=== PATIENT | female | born 1965 | race Caucasian/White ===

== ENCOUNTER 2016-08-23 23:38 | Emergency (ER) | payer MEDICAID ==
[2016-08-23] MEDS ORDERED: HYDROMORPHONE HCL INJ/PF 2 MG/ML AMPULE IV ONE (23:55)
[2016-08-23] MEDS ORDERED: NORMAL SALINE 1000 ML 1,000 ML IV ONE (23:56)
--- NOTE | 2016-08-23 23:58 | ER Document Report ---
ED General - General Stated Complaint: ABDOMINAL PAIN Time Seen by Provider: 08/23/16 23:46 Notes: Patient is a 51-year-old female with a history of stage IV breast cancer that comes emergency department for chief complaint of abdominal pain and pain over her left breast. Patient states that she has a draining open wound over her left breast that she has changed to 3 times a week in [place] where her oncologist Dr. Porter is located. she is currently undergoing chemotherapy. She states that she had a normal bowel movement recently which was nonbloody but she has had abdominal swelling and increased pain to her abdomen. She denies fever. She states she wanted to go to [place] but EMS had to bring her here. Past Medical History - General Information source: Patient - Social History Smoking Status: Never Smoker Frequency of alcohol use: None Drug Abuse: None Lives with: Spouse/Significant other Family History: Reviewed & Not Pertinent Malignancy Medical History: Reports: Hx Breast Cancer, Hx Liver Cancer, Hx Lung Cancer - Immunizations Hx Diphtheria, Pertussis, Tetanus Vaccination: Yes Review of Systems - Review of Systems Constitutional: No symptoms reported EENT: No symptoms reported Cardiovascular: No symptoms reported Respiratory: No symptoms reported Gastrointestinal: See HPI Genitourinary: No symptoms reported Female Genitourinary: No symptoms reported Musculoskeletal: No symptoms reported Skin: No symptoms reported Hematologic/Lymphatic: No symptoms reported Neurological/Psychological: No symptoms reported Physical Exam - Vital signs Vitals: Temp Pulse Resp BP Pulse Ox 98.0 F 139 H 17 124/95 H 98 08/23/16 23:47 08/23/16 23:47 08/23/16 23:47 08/23/16 23:47 08/23/16 23:47 Interpretation: Normal - General General appearance: Other - Patient is extremely emaciated, room smells of purulent discharge, patient is generally ill-appearing - HEENT Head: Normocephalic, Atraumatic Eyes: Normal Conjunctiva: Normal Extraocular movements intact: Yes Eyelashes: Normal Pupils: PERRL Mouth/Lips: Normal Mucous membranes: Normal Pharynx: Normal Neck: Normal - Respiratory Respiratory status: No respiratory distress Chest status: Tender - There is tenderness in the general area around the left lower breast, there is a dressing, there is purulent drainage from an open wound Breath sounds: Normal. No: Decreased air movement, Wheezing Chest palpation: Normal - Cardiovascular Rhythm: Regular, Tachycardia Heart sounds: Normal auscultation, S1 appreciated, S2 appreciated - Abdominal Distension: Distended Tenderness: Tender - Generalized tenderness without any specific guarding Organomegaly: No organomegaly - Back Back: Normal, Nontender - Extremities General upper extremity: Normal inspection, Nontender, Normal color, Normal ROM , Normal temperature General lower extremity: Normal inspection, Nontender, Normal color, Normal ROM , Normal temperature, Normal weight bearing. No: Carrington's sign - Neurological Neuro grossly intact: Yes Cognition: Normal Orientation: AAOx4 [place] Coma Scale Eye Opening: Spontaneous [place] Coma Scale Verbal: Oriented [place] Coma Scale Motor: Obeys Commands [place] Coma Scale Total: 15 Speech: Normal Motor strength normal: LUE, RUE, LLE, RLE Sensory: Normal - Psychological Associated symptoms: Normal affect, Normal mood - Skin Skin Temperature: Warm Skin Moisture: Dry Skin Color: Normal Course - Re-evaluation Re-evalutation: Patient tachycardic, has a swollen abdomen with generalized tenderness but no specific areas of guarding. No fever. No hypotension. Patient is very frail and emaciated in appearance. Patient is not hypoxic or in respiratory distress. CBC is actually unremarkable, patient does not have a fever. No abnormalities with neutrophils despite chemotherapy. Chemistry shows hyponatremia, bicarbonate is low, anion gap is elevated, consistent with metabolic acidosis. Patient receiving IV fluids. Mild hypokalemia. Chest x-ray showing multiple lesions, KUB showing nearly complete opacification, difficult to establish if this is ascites or other abnormality. CT recommended. Discussed with Dr. Olivera, recommends CT at this time before contacting her oncologist due to chief complaint of abdominal pain with her current workup. Patient does have breast cancer with liver mets, denies hx of ascites or any abdominal pain during her cancer course. 08/24/16 CT with large ascites. I called patient's Oncologist, discussed details, he states that patient can be admitted for abdominal paracentesis. Patient is wanting to be at [facility], he states that for continuity of care this is reasonable and that I will need to speak with the hospitalist. Spoke with Dr. Dale, he states they are happy to accept the patient but because we have radiology that can perform Alex paracentesis and oncology at this facility he cannot guarantee coverage, asked me to make double sure with patient and family that they still want to be transferred. I spoke with patient and , they state they understand there may be a cost to transfer , state they still want to go to [facility]. Called and spoke with transfer center again, patient accepted for transfer. - Vital Signs Vital signs: Temp Pulse Resp BP Pulse Ox 98.0 F 139 H 16 121/96 H 99 08/23/16 23:47 08/23/16 23:47 08/24/16 06:01 08/24/16 06:00 08/24/16 06:01 - Laboratory Result Diagrams: 08/24/16 00:43 08/24/16 00:43 Laboratory results interpreted by me: 08/24/16 08/24/16 08/24/16 00:43 00:43 03:00 RDW 20.1 H Seg Neutrophils % 88.0 H Lymphocytes % 7.3 L Sodium 129.7 L Potassium 3.4 L Chloride 90 L Carbon Dioxide 14 L Anion Gap 26 H BUN 6 L Creatinine 0.38 L Glucose 70 L Direct Bilirubin 0.5 H AST 75 H Alkaline Phosphatase 294 H Albumin 2.9 L Urine Protein 100 H Urine Ketones 80 H Discharge - Discharge Clinical Impression: Metabolic acidosis, Liver metastasis Abdominal pain Qualifiers: Abdominal location: generalized Qualified Code(s): R10.84 - Generalized abdominal pain Ascites Qualifiers: Ascites type: malignant Qualified Code(s): R18.0 - Malignant ascites Condition: Stable Disposition: [facility]
[2016-08-24 01:02] LABS: ABSOLUTE LYMPHOCYTES (AUTO) 0.5 10^3/uL (0.5-4.7); ABSOLUTE MONOCYTES (AUTO) 0.3 10^3/uL (0.1-1.4); ABSOLUTE NEUT (AUTO) 5.8 10^3/uL (1.7-8.2); BASOPHILS % (AUTO) 0.2 % (0-2); HEMATOCRIT 38.8 % (36.0-47.0); HEMOGLOBIN 12.6 g/dL (12.0-15.5); LYMPHOCYTES % (AUTO) 7.3 % (13-45); MEAN CORPUSCULAR HEMOGLOBIN 29.7 pg (27.0-33.4); MEAN CORPUSCULAR HGB CONC 32.4 g/dL (32.0-36.0); MEAN CORPUSCULAR VOLUME 92 fl (80-97); MONOCYTES % (AUTO) 4.5 % (3-13); RED BLOOD COUNT 4.24 10^6/uL (3.72-5.28); RED CELL DISTRIBUTION WIDTH 20.1 % (11.5-14.0); WHITE BLOOD COUNT 6.6 10^3/uL (4.0-10.5)
[2016-08-24 01:20] LABS: ALANINE AMINOTRANSFERASE 26 U/L (9-52); ALBUMIN 2.9 g/dL (3.5-5.0); ALKALINE PHOSPHATASE 294 U/L (38-126); ASPARTATE AMINO TRANSFERASE 75 U/L (14-36); BILIRUBIN,DIRECT 0.5 mg/dL (0.0-0.4); BILIRUBIN,TOTAL 0.7 mg/dL (0.2-1.3); BLOOD UREA NITROGEN 6 mg/dL (7-20); CALCIUM 9.1 mg/dL (8.4-10.2); CARBON DIOXIDE 14 mmol/L (22-30); CHLORIDE 90 mmol/L (98-107); CREATININE RESULT 0.38 mg/dL (0.52-1.25); GLUCOSE 70 mg/dL (75-110); LIPASE 56.9 U/L (23-300); POTASSIUM 3.4 mmol/L (3.6-5.0); TOTAL PROTEIN 6.8 g/dL (6.3-8.2)
--- NOTE | 2016-08-24 01:21 | RADIOLOGY REPORT (SQ) ---
EXAM DESCRIPTION: KUB/ABDOMEN (SINGLE VIEW) COMPLETED DATE/TIME: 08/24/2016 1:09 am REASON FOR STUDY: abd pain and swelling COMPARISON: None. NUMBER OF VIEWS: One view. TECHNIQUE: Supine radiographic image of the abdomen acquired. LIMITATIONS: None. FINDINGS: BOWEL GAS PATTERN: Severe paucity of bowel gas. Diffuse nonspecific opacification of the abdomen and pelvis. CALCIFICATIONS: No suspicious calcifications. SOFT TISSUES: No gross mass or suggestion of organomegaly. HARDWARE: None in the abdomen. BONES: No acute fracture. No worrisome bone lesions. OTHER: No other significant finding. IMPRESSION: Severe diffuse nonspecific opacification of the abdomen and pelvis; consider further cody luation with CT using IV and oral contrast. TECHNICAL DOCUMENTATION: JOB ID: [id number] [employer]- All Rights Reserved
--- NOTE | 2016-08-24 01:23 | RADIOLOGY REPORT (SQ) ---
EXAM DESCRIPTION: CHEST SINGLE VIEW COMPLETED DATE/TIME: 08/24/2016 1:09 am REASON FOR STUDY: ABD PAIN AND SWELLING COMPARISON: None. EXAM PARAMETERS: NUMBER OF VIEWS: One view. TECHNIQUE: Single frontal radiographic view of the chest acquired. RADIATION DOSE: NA LIMITATIONS: None. FINDINGS: LUNGS AND PLEURA: Numerous pulmonary lesions measuring up to 6.5 cm in the right lower lob e. MEDIASTINUM AND HILAR STRUCTURES: No masses. Contour normal. HEART AND VASCULAR STRUCTURES: Heart normal in size. Normal vasculature. BONES: No acute findings. HARDWARE: Right mini port central line tip at the right atrium ; consider 6.3 cm retraction. OTHER: No other significant finding. IMPRESSION: Numerous pulmonary lesions measure up to 6.5 cm and may indicate malignancy/metastases. Differential diagnosis includes other infectious and inflammatory processes. TECHNICAL DOCUMENTATION: JOB ID: [id number]
[2016-08-24 01:27] LABS: SODIUM 129.7 mmol/L (137-145)
[2016-08-24 01:28] LABS: ANION GAP 26 (5-19)
[2016-08-24] MEDS ORDERED: NORMAL SALINE 1000 ML 1,000 ML IV ONE (02:04)
[2016-08-24] MEDS ORDERED: HYDROMORPHONE HCL INJ/PF 2 MG/ML AMPULE IV ONE ×5 (02:13→17:27)
[2016-08-24 04:20] LABS: APPEARANCE,URINE SLIGHTLY-CLOUDY; BILIRUBIN,URINE NEGATIVE (NEGATIVE); GLUCOSE, URINE NEGATIVE (NEGATIVE); KETONES,URINE 80 mg/dL (NEGATIVE); LEUKOCYTE ESTERASE,URINE NEGATIVE (NEGATIVE); NITRITE,URINE NEGATIVE (NEGATIVE); PROTEIN,URINE 100 mg/dL (NEGATIVE); URINE SPECIFIC GRAVITY 1.024; UROBILINOGEN,URINE NEGATIVE mg/dL (<2.0)
--- NOTE | 2016-08-24 05:41 | RADIOLOGY REPORT (SQ) ---
EXAM DESCRIPTION: CT ABD/PELVIS WITH IV ORAL COMPLETED DATE/TIME: 08/24/2016 5:17 am REASON FOR STUDY: abd pain and swelling; breast cancer COMPARISON: CR, 08/24/2016. TECHNIQUE: CT scan of the abdomen and pelvis performed using helical scanning technique with dynamic intravenous contrast injection. No oral contrast. Images reviewed with lung, soft tissue, and bone windows. Reconstructed coronal and sagittal MPR images reviewed. Delayed images for evaluation of the urinary system also acquired. All images stored on PACS. All CT scanners at this facility use dose modulation, iterative reconstruction, and/or weight based d osing when appropriate to reduce radiation dose to as low as reasonably achievable (ALARA). [facility]: Dose Right [facility]: CareDose [facility]: Dose Right [facility]: Teradose 4D [facility]: [employer] CONTRAST TYPE AND DOSE: contrast/concentration: Isovue 370.00 mg/ml; Total Contrast Delivered: 43.0 ml; Total Saline Delivered: 65.0 ml RENAL FUNCTION: Creatinine 0.4 RADIATION DOSE: 695 LIMITATIONS: None. FINDINGS: LOWER CHEST: Numerous pulmonary masses measuring up to 5.3 cm. Complex mass enlargement o f the left breast includes a 3.6 cm nodular component of the posterior breast/chest wall with the adj acent deformity -erosion of the left 5th anterior rib. Moderate bilateral pleural effusions. LIVER: Numerous hepatic lesions extensively throughout the liver. Moderate with macro nodularity of liver surface contour. SPLEEN: Normal size. No focal lesions. PANCREAS: No masses. No significant calcifications. No adjacent inflammation or peripancreatic fluid collections. Pancreatic duct not dilated. GALLBLADDER: No identified stones by CT criteria. No inflammatory changes to suggest cholecystitis. ADRENAL GLANDS: No significant masses or asymmetry. RIGHT KIDNEY AND URETER: No solid masses. No significant calcifications. No hydronephrosis or hyd roureter. LEFT KIDNEY AND URETER: No solid masses. No significant calcifications. No hydronephrosis or hydr oureter. AORTA AND VESSELS: No aneurysm. No dissection. Renal arteries, SMA, celiac without stenosis. RETROPERITONEUM: No retroperitoneal adenopathy, hemorrhage or masses. BOWEL AND PERITONEAL CAVITY: Large ascites. APPENDIX: Normal. PELVIS: Normal bladder. ABDOMINAL WALL: No masses. No hernias. BONES: No significant or acute findings. OTHER: Moderate soft tissue anasarca. IMPRESSION: Left breast lesions, numerous lung masses, extensive liver lesions, large ascites, and m oderate pleural effusions ; malignancy -metastases is of 1st consideration. Patient has reported his tory of breast cancer. TECHNICAL DOCUMENTATION: JOB ID: [id number] Quality ID # [id number]: Final reports with documentation of one or more dose reduction techniques (e.g., Au tomated exposure control, adjustment of the mA and/or kV according to patient size, use of iterative reconstruction technique) 2010 [employer]- All Rights Reserved
[2016-08-24] MEDS ORDERED: NORMAL SALINE 1000 ML 1,000 ML IV PRN (06:29)
[2016-08-24 10:15] LABS: BLOOD UREA NITROGEN 5 mg/dL (7-20); CALCIUM 8.2 mg/dL (8.4-10.2); CARBON DIOXIDE 13 mmol/L (22-30); CHLORIDE 95 mmol/L (98-107); CREATININE RESULT 0.28 mg/dL (0.52-1.25); GLUCOSE 65 mg/dL (75-110); SODIUM 131.1 mmol/L (137-145)
[2016-08-24 10:18] LABS: ANION GAP 23 (5-19); POTASSIUM 2.9 mmol/L (3.6-5.0)
[2016-08-24] MEDS ORDERED: POTASSIUM CHLORIDE 10 MEQ TABLET.SA PO ONE (10:55)
[2016-08-24 17:05] VITALS: BP 112/90
== END 2016-08-24 17:55 | disposition short-term general hospital (02) ==
LOC: ER 23:38
DX: E87.2 Acidosis (principal); C78.7 Secondary malignant neoplasm of liver and intrahepatic bile duct; R18.0 Malignant ascites; R10.9 Unspecified abdominal pain; N64.4 Mastodynia; Z85.3 Personal history of malignant neoplasm of breast; Z85.118 Personal history of other malignant neoplasm of bronchus and lung
CPT/HCPCS: 36591; 96376; 99285; 96361; 51701; 96374; 36415; 87040; 83690; 83735; 84132; 85025; 80048; 80053; 81001; 71010; 74000; 74177; J1170; J7030